=== PATIENT | male | born 1985 | race Caucasian/White ===

== ENCOUNTER 2022-02-14 16:51 | Outpatient (CLI) | payer BC, SELFPAY ==
[2022-02-14 13:24] LABS: Albumin* 4.4 g/dL (3.3-5.0)
[2022-02-14 13:25] LABS: Chloride* 104 mmol/L (96-114); Sodium* 141 mmol/L (135-149)
[2022-02-14 13:27] LABS: Aspartate Amino Transferase* 22 U/L (12-35); Bilirubin Total* 0.9 mg/dL (0.1-1.5); Carbon Dioxide* 32 mmol/L (20-32); Estimated Glomerular Filt Rate 99 ml/min; Total Protein* 6.8 g/dL (6.0-8.3)
[2022-02-14 13:28] LABS: Alanine Aminotransferase* 26 U/L (4-50); Alkaline Phosphatase* 123 U/L (40-150); Blood Urea Nitrogen* 16 mg/dL (5-24); Calcium* 9.3 mg/dL (8.4-10.6); Glucose* 97 mg/dL (60-115); HDL Cholesterol* 48 mg/dL (>=40); Triglycerides* 88 mg/dL (40-149)
[2022-02-15 18:53] LABS: Cholesterol* 130 mg/dL (90-199); LDL Cholesterol Calculated 64 mg/dL (<100)
== END 2022-02-14 16:52 | disposition home or self-care (01) ==
PROVIDERS: PCP Physician Assistant Medical; Visit Provider Physician Assistant Medical
DX: Z00.00 Encounter for general adult medical examination without abnormal findings (principal); Z13.6 Encounter for screening for cardiovascular disorders
CPT/HCPCS: 80053; 80061

== ENCOUNTER 2023-02-15 07:47 | Outpatient (CLI) | payer BC, SELFPAY | END 2023-02-15 07:48 | disposition home or self-care (01) | LOC: NFLDREF 02-21 11:57 | PROVIDERS: PCP Physician Assistant Medical; Referring Provider Physician Assistant Medical; Visit Provider Physician Assistant Medical | DX: Z00.00 Encounter for general adult medical examination without abnormal findings (principal); L40.9 Psoriasis, unspecified; Z13.6 Encounter for screening for cardiovascular disorders; Z13.1 Encounter for screening for diabetes mellitus; Z13.9 Encounter for screening, unspecified | CPT/HCPCS: 80053; 80061 ==

== ENCOUNTER 2024-03-05 07:43 | Outpatient (CLI) | payer BC, SELFPAY | END 2024-03-05 07:44 | disposition home or self-care (01) | LOC: NFLDREF 03-11 16:06 | PROVIDERS: PCP Physician Assistant Medical; Referring Provider Physician Assistant Medical; Visit Provider Physician Assistant Medical | DX: Z13.228 Encounter for screening for other metabolic disorders (principal); Z13.220 Encounter for screening for lipoid disorders; Z13.29 Encounter for screening for other suspected endocrine disorder | CPT/HCPCS: 80053; 80061; 84443 ==